=== PATIENT | male | born 1975 | race Caucasian/White ===

== ENCOUNTER 2023-12-20 04:48 | Emergency (ER) | payer OTHER, SELFPAY ==
[2023-12-20 05:02] VITALS: BP 149/86
[2023-12-20 05:34] VITALS: BMI 57.5
[2023-12-20 05:42] VITALS: BP 121/71
[2023-12-20 05:51] LABS: % Basophils 0.2 % (0-2); % Immature Granulocytes 0.4 % (0-0.5); % Lymphocytes 4.5 % (20.5-51.1); % Monocytes 4.3 % (1.7-9.3); % Neutrophils 90.6 % (42.2-75.2); Absolute Immature Granulocytes 0.1 10^3/uL (0-0.05); Absolute Lymphocytes 0.7 10^3/uL (1.2-3.4); Absolute Monocytes 0.7 10^3/uL (0.1-0.6); Hematocrit 41.7 % (39.0-52.0); Hemoglobin 14.1 g/dL (13.0-18.0); Mean Corp Hgb Conc. 33.8 g/dL (33.0-37.0); Mean Corpuscular Volume 79.7 fL (80.0-94.0); Mean Platelet Volume 11.8 fL (7.4-10.4); Nucleated Red Blood Cells % 0 % (-); Platelet Count 207 10^3/uL (130-400); Red Blood Cell Count 5.23 10^6/uL (4.70-6.10); Red Cell Dist. Width 15.1 % (11.5-14.5); White Blood Cell Count 15.4 10^3/uL (4.8-10.8)
[2023-12-20 06:00] VITALS: BP 116/70
[2023-12-20 06:36] LABS: ALT (SGPT) 23 U/L (0-50); AST (SGOT) 22 U/L (17-59); Albumin 4.2 g/dl (3.5-5.0); Alkaline Phosphatase 69 U/L (38-126); Blood Urea Nitrogen 13 mg/dl (9-20); Carbon Dioxide 28 mmol/L (22-30); Chloride 101 mmol/L (98-107); Estimated Creatinine Clearance > 125 ml/min; Glucose 234 mg/dl (70-99); Lipase 64 U/L (23-300); Potassium 4.2 mmol/L (3.5-5.1); Sodium 138 mmol/L (135-145); Total Bilirubin 0.6 mg/dl (0.2-1.3); eGFR > 60.00
--- NOTE | 2023-12-20 06:53 | ED.GENMED ---
History of Present Illness
General
Chief Complaint: Abdominal Symptoms
Source: patient
Exam Limitations: none
Time Seen by Provider: 12/20/23 06:03
Nursing documentation reviewed up to this point in time: agreed with
Travel History
Have you had any contact with someone who has COVID-19?: No
Do you have any symptoms of coronavirus? Fever > 100 degrees, chills, cough, shortness of breath, sore throat, loss of taste or smell, muscle aches, or headache?: No
History of Present Illness
History of Present Illness:
47-year-old male with a past medical history of hypertension, hyperlipidemia, diabetes, GERD, obesity who presents to the emergency department for evaluation of abdominal pain. Patient reports onset of symptoms around 8:30 PM last night and they
have been constant since then although the intensity seems to wax and wane. Pain mainly periumbilical region. He reports associated sensation of bloating/abdominal distention. He says he has had some nausea and had 3 episodes of vomiting
overnight. He denies any diarrhea and says he did have a bowel movement around 1 AM that was normal. He denies any fevers or chills. He denies any urinary symptoms. He denies any other complaints. Denies similar symptoms in the past. Denies
prior abdominal surgeries.
Review of Systems
Review of Systems
All Other Systems: ROS reviewed and negative except as documented in HPI and ROS
Constitutional: Denies fever or chills
Respiratory: Denies trouble breathing
Cardiac: Denies chest pain
ABD/GI: Reports abdominal pain, nausea and vomiting; Denies diarrhea or constipated
: Denies dysuria, frequency or flank pain
Musculoskeletal: Denies neck pain or back pain
Neurological: Denies dizzy or headache
Phy Exam
Physical Exam
Physical Exam:
General: Awake, alert, oriented x3; no acute distress
Head: Normocephalic, atraumatic
Eyes: Conjunctiva normal, sclera anicteric
Throat: Airway intact, moist mucous membranes
Neck: Trachea midline, supple without meningismus
Lungs: Clear to auscultation bilaterally, no wheezing, rales, rhonchi
Heart: Regular rate and rhythm, no murmurs, gallops, or rubs
Abd: Soft, mildly distended, diffusely tender maximally in the periumbilical region; there is a rather large umbilical hernia which is soft, tender to the touch, irreducible on initial bedside assessment
Neuro: No gross deficits
Skin: no rash
Extremities: No edema in extremities, equal pulses in all extremities
Scores
Heart Failure Risk
Heart Failure Risk Score: Not Applicable
Heart Score for Chest Pain Patients
STEMI patient?: Not applicable
Withdrawal Assessment of Alcohol
Withdrawal Assessment Completed?: Not applicable
Course
Orders/Labs/Results
Orders:
Orders
12/20/23 05:27
IV Insert/Care/Rem.- Treatment PRN
12/20/23 05:44
Complete Blood Count/With Diff Urgent
Comprehensive Metabolic Panel Urgent
Lipase Urgent
12/20/23 06:45
CT Abd/pelvis W Iv Cont Urgent
Comment:
Reason For Exam: abd pain, vomiting
12/20/23 06:46
0.9% Sodium Chloride 1000 ml [Nss] 1,000 ml IV BOLUS
Diphenhydramine [Benadryl] 25 mg IV NOW STA
Metoclopramide [Reglan] 10 mg IV NOW STA
12/20/23 06:52
Morphine Sulfate 4 mg IV NOW STA
Ondansetron Injectable [Zofran] 4 mg IV NOW STA
12/20/23 07:23
Lactate Level [Lactic Acid] Urgent
Abnormal Lab Results
12/20/23
05:44
WBC 15.4 H 10^3/uL
(4.8-10.8)
MCV 79.7 L fL
(80.0-94.0)
RDW 15.1 H %
(11.5-14.5)
MPV 11.8 H fL
(7.4-10.4)
Abs Immat Gran (auto) 0.1 H 10^3/uL
(0-0.05)
Absolute Neuts (auto) 14.0 H 10^3/uL
(1.4-6.5)
Absolute Lymphs (auto) 0.7 L 10^3/uL
(1.2-3.4)
Absolute Monos (auto) 0.7 H 10^3/uL
(0.1-0.6)
Neutrophils % 90.6 H %
(42.2-75.2)
Lymphocytes % 4.5 L %
(20.5-51.1)
Glucose 234 H mg/dl
(70-99)
12/20/23 05:44
12/20/23 05:44
Vital Signs
Initial and Last Documented VS:
Initial Vital Signs
Temp Pulse Resp BP Pulse Ox
36.9 C 79 20 149/86 98
12/20/23 05:02 12/20/23 05:02 12/20/23 05:02 12/20/23 05:02 12/20/23 05:02
Last Documented Vital Signs
Temp Pulse Resp BP Pulse Ox
36.9 C 79 20 139/85 97
12/20/23 05:02 12/20/23 05:02 12/20/23 05:02 12/20/23 08:00 12/20/23 08:15
MDM/Problems Addressed
Differential Diagnosis Includes:
Incarcerated hernia, bowel obstruction, pancreatitis, diverticulitis, appendicitis
MDM/Problems Addressed:
47-year-old male presents for evaluation of abdominal pain for the past 10 hours associate with nausea and 2 episodes of vomiting. Hypertensive but otherwise normal vitals. Physical exam as above. He does have a large periumbilical hernia that is
relatively soft but tender, no skin changes. Difficult to reduce on initial bedside assessment. Certainly symptoms could be from incarcerated hernia. Will plan to place IV check labs including a CBC and a CMP, lipase. Will apply ice pack and
pain control and attempt reduction again. Will send for a CT to rule out signs of obstruction and to evaluate for alternate intra-abdominal pathology. Reassess after the above.
Labs reviewed: CBC shows slight leukocytosis otherwise unremarkable, CMP shows nonfasting hyperglycemia in the setting of known diabetes. Lactate normal. CT shows large umbilical hernia with several loops of bowel inside some mild edema and
stranding nothing to suggest small bowel obstruction. After patient returned from CT scan he was treated with pain medication and ice pack removed, patient placed in Trendelenburg and I was able to reduce his umbilical hernia at bedside. He had
improvement in his pain. Will monitor here and perform serial exams and if pain resolved can likely follow-up for outpatient surgical consultation.
Repeat assessment patient remains pain-free, no nausea. Abdominal exam benign, hernia soft and reducible. Continue to monitor.
Repeat assessment patient still pain-free with no nausea. Was able to get up and walk around, use the bathroom with no issues. Repeat abdominal exam is benign. His hernia is soft and quite easily reduced now. At this point we have observed for
2+ hours after reduction with no recurrence of pain and hernia has been soft and reducible since. I think he is stable for discharge. Discussed with general surgery they will see him in the office as an outpatient. Provided abdominal binder. I
did speak to him in detail about return precautions including fever or chills, return of pain or any other complaints. He is very comfortable with this plan. All questions answered.
Acute Exacerbation and/or Progression of Chronic Illness:
Acute hypertensive likely from pain�treat pain with improvement
Acute Exacerbation and/or Progression of Chronic Illness: HTN
*Radiology
Radiology exam reviewed: radiology read reviewed
*Pulse Oximetry
Patient hypoxic: no
*Critical Care Note
Total Time (30-74mins, 75-104mins- exclusive of procedures): Not Applicable
Data Reviewed
Source: patient
Patient Management
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
ED Attending Note
-
Portions of this chart may have been created with voice recognition software.� Occasional wrong word or��sound alike� substitutions may have occurred due to the inherent limitations of voice recognition software.
Discharge Plan
Departure
Patient with high blood pressure during this ER visit?: Yes
Discharge Problem:
Incarcerated hernia
Instructions: Abdominal Hernia
Prescriptions:
No Action
Protonix 40 mg
40 mg PO DAILY
amlodipine 5 mg
5 mg PO DAILY
atorvastatin 10 mg
10 mg PO DAILY
gabapentin 300 mg
300 mg PO TID
glipizide 5 mg
5 mg PO BID
Rx Instructions:
take before meals
lisinopril 2.5 mg
2.5 mg PO DAILY
sertraline 100 mg
100 mg PO DAILY
Referrals:
Jaylan Bernal MD [Active] - Call in 1-3 days for appt
Scarlett An PA-C [Family Provider] -
Activity Restrictions/Additional Instructions:
Thank you for visiting the Emergency Department at [facility].
1. Please schedule a follow up appointment as directed. Call first thing tomorrow morning to make an appointment.
2. If indicated, please take your medications as instructed and indicated on discharge paperwork.
3. If any of your symptoms do not improve, or persist, or become more severe within 6-12 hours, please return to the emergency department for further care.
4. Please return to the emergency department if you develop a headache, neck pain/stiffness, fever greater than 100.4F, chest pain, shortness of breath, persistent nausea, vomiting, slurred speech, difficulty walking, numbness/tingling, weakness,
signs of infection or any other symptoms that are worrisome to you.
Please call [phone] if you have any questions.
Interventions
Interventions:
*Risk Screen - Suicide Last Done: 12/20/23 05:02
*General Assessment Last Done: 12/20/23 05:02
*Neglect/Abuse Screening Last Done: 12/20/23 05:02
ED- Fall Risk Assessment Last Done: 12/20/23 05:02
*ED COVID-19 Vaccine History Last Done: 12/20/23 05:02
IU-Cdqnas-Gbgebhggyc Assessment Last Done: 12/20/23 05:51
Discharge Date and Time
Print Language: GABONESE
[2023-12-20 07:17] VITALS: BP 139/78
[2023-12-20] MEDS: ZOFRAN 4 MG IV (07:18)
[2023-12-20] MEDS: MORPHINE SULFATE 4 MG IV (07:18)
[2023-12-20] MEDS: NSS 1000 IV (07:19)
[2023-12-20 07:46] LABS: Lactic Acid 1.2 mmol/L (0.7-2.0)
[2023-12-20 08:00] VITALS: BP 139/85
[2023-12-20 11:46] VITALS: BP 126/71
== END 2023-12-20 11:47 | disposition home or self-care (01) ==
LOC: EMR 04:48
PROVIDERS: Emergency Medicine; EMERGENCY PHYSICIAN Emergency Medicine; FAMILY PHYSICIAN Physician Assistant Medical
DX: K42.0 Umbilical hernia with obstruction, without gangrene (principal); R11.2 Nausea with vomiting, unspecified; E11.9 Type 2 diabetes mellitus without complications; I10 Essential (primary) hypertension; K21.9 Gastro-esophageal reflux disease without esophagitis; E78.5 Hyperlipidemia, unspecified; E66.9 Obesity, unspecified; Z88.0 Allergy status to penicillin
CPT/HCPCS: 99285; 96375; 96361; 96374; 74177; 80053; 83605; 83690; 85025; Q9967